=== PATIENT | female | born 1980 | race Caucasian/White ===

== ENCOUNTER 2019-06-26 09:30 | Emergency (ER) | payer OTHER ==
[~2019-06-26] VITALS: Ht 170.2 cm; Wt 82.6 kg
--- NOTE | 2019-06-26 10:45 | NUR ---
pt resting in [facility], changed into gown, waiting for Dr evaluation, NAD, denies additional needs at this time, NAD, call light within reach, WCTM.
[2019-06-26] MEDS ORDERED: MAALOX/HYOSCYAMINE/LIDOCAINE 45 ML BTL PO ONE (11:00)
[2019-06-26] MEDS ORDERED: MAALOX/HYOSCYAMINE/LIDOCAINE 45 ML BTL ONE (11:07)
--- NOTE | 2019-06-26 11:16 | NUR ---
pt resting in gurney, urine to lab, friend at bedside, pt ambulated to bathroom even and steady. Call light within reach, even and unlabored respirations. WCTM
[2019-06-26 11:24] LABS: MICROSCOPIC NOT IND
[2019-06-26 11:32] LABS: CULTURE INDICATED? NO
[2019-06-26 11:37] LABS: BASOPHILS # (AUTO) 0.01 x10^3/uL (0-0.1); BASOPHILS % (AUTO) 0 % (0-1); EOSINOPHILS # (AUTO) 0.01 x10^3/uL (0-0.4); EOSINOPHILS % (AUTO) 0 % (1-7); LYMPHOCYTES # (AUTO) 0.62 x10^3/uL (1-3.4); LYMPHOCYTES % (AUTO) 6 % (22-44); MD NO; MEAN CORPUSCULAR HEMOGLOBIN 34.4 pg (27.0-34.8); MEAN CORPUSCULAR HGB CONC 33.7 g/dL (32.4-35.8); MEAN CORPUSCULAR VOLUME 102.3 fL (80-100); MONOCYTES # (AUTO) 0.46 x10^3/uL (0.2-0.8); MONOCYTES % (AUTO) 4 % (2-9); NEUTROPHILS # (AUTO) 9.89 x10^3/uL (1.8-6.8); NEUTROPHILS % (AUTO) 90 % (42-75); PLATELET COUNT 243 x10^3/uL (130-400); RED BLOOD COUNT 4.54 x10^6/uL (3.82-5.3); RED CELL DISTRIBUTION WIDTH 13.3 % (9.6-15.2)
[2019-06-26 11:45] LABS: ALANINE AMINOTRANSFERASE 109 U/L (12-78); ALBUMIN 3.5 g/dL (3.4-5.0); ANION GAP 7 mmol/L (5-15); CALCIUM 8.4 mg/dL (8.5-10.1); CHLORIDE 108 mmol/L (98-107); CREATININE 0.77 mg/dL (0.55-1.02)
[2019-06-26 11:47] LABS: ALKALINE PHOSPHATASE 161 U/L (45-117); BILIRUBIN,TOTAL 1.1 mg/dL (0.2-1.0); TOTAL PROTEIN 6.9 g/dL (6.4-8.2)
--- NOTE | 2019-06-26 12:00 | NUR ---
late entry: pt resting in [place], waiting for results to dispo, even and unlabored respirations, call light within reach. NAD, denies additional needs, WCTM.
[2019-06-26 12:55] VITALS: BP 129/54
== END 2019-06-26 12:59 | disposition home or self-care (01) ==
LOC: ED 12:48
DX: K80.20 Calculus of gallbladder without cholecystitis without obstruction (principal); R74.0 Nonspecific elevation of levels of transaminase and lactic acid dehydrogenase [LDH]
CPT/HCPCS: 36415; 76700; 80053; 81003; 83690; 85025; 99285

== ENCOUNTER 2019-09-18 11:58 | Outpatient (CLI) | payer OTHER ==
[2019-09-18] MEDS ORDERED: ESOM20CA PO (14:33)
== END 2019-09-18 23:59 | disposition home or self-care (01) ==
LOC: STAR 11:58
PROVIDERS: ATTEND Thoracic Surgery (Cardiothoracic Vascular Surgery)
DX: Z11.59 Encounter for screening for other viral diseases (principal)
CPT/HCPCS: U0001-CS

== ENCOUNTER 2019-09-23 07:14 | Day surgery (SDC) | payer OTHER ==
[~2019-09-23] VITALS: Ht 170.2 cm; Wt 77.0 kg
[~2019-09-23 07:14] MED LIST: ESOM20CA PO
[2019-09-23] MEDS ORDERED: LACTATED RINGERS 1,000 ML IV SCH ×2 (07:42→09:38)
[2019-09-23 07:44] VITALS: BP 109/58
[2019-09-23] MEDS ORDERED: CHLORHEXIDINE 15 ML UDC ONE (07:48)
[2019-09-23] MEDS ORDERED: BUPIVACAINE/PF-EPI 0.5% 1:200K ONE (07:54)
[2019-09-23] MEDS ORDERED: CHLORHEXIDINE 15 ML UDC MM ONE (08:00)
[2019-09-23 08:19] LABS: HCG UR SG 1.023 (1.003-1.030)
[2019-09-23] MEDS ORDERED: MIDAZOLAM 1 MG/ML, 2ML ONE (09:03)
[2019-09-23] MEDS ORDERED: DEXAMETHASONE 4 MG/ML, 1ML ONE ×2 (09:11→09:23)
[2019-09-23] MEDS ORDERED: FENTANYL PF 250 MCG/5ML ONE (09:11)
[2019-09-23] MEDS ORDERED: PROPOFOL 10 MG/ML, 20ML ONE (09:23)
[2019-09-23] MEDS ORDERED: ONDANSETRON 2MG/ML, 2ML ONE ×2 (09:23)
[2019-09-23] MEDS ORDERED: SUCCINYLCHOLINE 20 MG/ML, 10ML ONE (09:24)
[2019-09-23] MEDS ORDERED: CEFAZOLIN 1,000 MG ONE ×2 (09:24)
[2019-09-23] MEDS ORDERED: ROCURONIUM 10MG/ML,5ML ONE (09:24)
[2019-09-23] MEDS ORDERED: ONDANSETRON 2MG/ML, 2ML IVPush PRN ×2 (09:30→10:00)
[2019-09-23] MEDS ORDERED: OXYcodone 5 MG/5 ML ORAL.SOL UDC PO PRN (09:30)
[2019-09-23] MEDS ORDERED: ALBUTEROL SULFATE 2.5 MG/3 ML NPPB PRN (09:30)
[2019-09-23] MEDS ORDERED: MEPERIDINE/PF 25MG/0.5ML IVPush PRN (09:30)
[2019-09-23] MEDS ORDERED: MIDAZOLAM 1 MG/ML, 2ML IV PRN (09:30)
[2019-09-23] MEDS ORDERED: FENTANYL PF 100 MCG/2ML IV PRN (09:30)
[2019-09-23] MEDS ORDERED: EPHEDRINE 50 MG/ML, 1ML IVPush PRN (09:30)
[2019-09-23] MEDS ORDERED: ACETAMINOPHEN 325 MG TABLET PO PRN (09:30)
[2019-09-23] MEDS ORDERED: SUGAMMADEX 200 MG/2 ML IVPush ONE (09:30)
[2019-09-23] MEDS ORDERED: hydrALAzine 20 MG/ML, 1ML IV PRN (09:30)
[2019-09-23] MEDS ORDERED: DIPHENHYDRAMINE 50 MG/ML, 1ML IVPush PRN (09:30)
[2019-09-23] MEDS ORDERED: PROMETHAZINE 12.5 MG SUPP PR PRN (09:30)
[2019-09-23] MEDS ORDERED: PROMETHAZINE 25 MG/ML, 1ML IVPush PRN (09:30)
[2019-09-23] MEDS ORDERED: LABETALOL 5MG/ML, 20ML IV PRN (09:30)
[2019-09-23] MEDS ORDERED: DIAZEPAM 5 MG/ML, 2ML IVPush PRN (09:30)
[2019-09-23] MEDS ORDERED: HYDROmorphone 1 MG/ML, 1ML INJ IVPush PRN (09:30)
[2019-09-23] MEDS ORDERED: morphine SULFATE 10 MG/ML, 1ML IVPush PRN (10:00)
[2019-09-23] MEDS ORDERED: HYDROcodone/APAP 5/325 TABLET PO PRN (10:00)
[2019-09-23] MEDS ORDERED: FENTANYL PF 100 MCG/2ML ONE (10:05)
[2019-09-23] MEDS ORDERED: OXYcodone 5 MG/5 ML ORAL.SOL UDC ONE (10:05)
[2019-09-23] MEDS ORDERED: ACETAMINOPHEN 650 MG/20.3 ML UDC ONE (10:05)
== END 2019-09-23 11:45 | disposition home or self-care (01) ==
LOC: OUT 07:14
PROVIDERS: ATTEND Thoracic Surgery (Cardiothoracic Vascular Surgery)
DX: K80.10 Calculus of gallbladder with chronic cholecystitis without obstruction (principal); K21.9 Gastro-esophageal reflux disease without esophagitis; Z79.899 Other long term (current) drug therapy; Z87.891 Personal history of nicotine dependence; Z88.8 Allergy status to other drugs, medicaments and biological substances; Z98.84 Bariatric surgery status; Z83.3 Family history of diabetes mellitus; Z82.49 Family history of ischemic heart disease and other diseases of the circulatory system; Z83.49 Family history of other endocrine, nutritional and metabolic diseases
CPT/HCPCS: 47562; 81025; 88304; J0330; J0690; J1100; J2250; J2405; J2704; J3010; J7120